=== PATIENT | female | born 1960 | race Caucasian/White ===

== ENCOUNTER 2022-05-19 13:52 | Outpatient (CLI) | payer OTHER, SELFPAY ==
--- NOTE | 2022-05-19 14:00 | CRLHL7_ITS ---
For Patients: As a result of the Century Cures Act, medical imaging exams and procedure reports are released immediately into your electronic medical record. You may view this report before your referring provider. If you have questions, please contact your health care provider. INDICATION: PNEUMONIA COMPARISON: Chest x-ray 05/17/2022 TECHNIQUE: CT volumetric acquisition was performed of the thorax during intravenous infusion of 95 cc Isovue 370 nonionic intravenous contrast. Please note that all CT scans at this facility use dose modulation, iterative reconstruction, and/or weight-based dosing when appropriate to reduce radiation dose to as low as reasonably achievable. FINDINGS: The CT images are of acceptable quality and demonstrate normal uniform vascular enhancement within the pulmonary arteries. There are no suspicious filling defects which would indicate pulmonary thromboemboli. There is no evidence of pleural or pericardial fluid. The heart and thoracic aorta appear normal. There is no evidence of lymphadenopathy within the central mediastinum or within either axilla. On lung window settings, there is no evidence of pneumothorax. The pulmonary parenchyma has uniform density and there is no evidence of hemorrhage or pneumonia. IMPRESSION: No evidence of pulmonary thromboembolism. Please note that all CT scans at this facility use dose modulation, iterative reconstruction, and/or weight-based dosing when appropriate to reduce radiation dose to as low as reasonably achievable. Dictated by Sam Weir MD @ 05/20/2022 10:14:57 AM (Electronically Signed)
== END 2022-05-19 13:53 | disposition home or self-care (01) ==
LOC: CT 13:54
PROVIDERS: PCP Internal Medicine; Visit Provider Internal Medicine
DX: J18.9 Pneumonia, unspecified organism (principal)
CPT/HCPCS: 71260; Q9967

== ENCOUNTER 2022-06-09 08:18 | Outpatient (CLI) | payer OTHER, SELFPAY | END 2022-06-09 08:19 | disposition home or self-care (01) | LOC: FRMREF 08:18 | PROVIDERS: PCP Internal Medicine; Visit Provider Internal Medicine | DX: J45.901 Unspecified asthma with (acute) exacerbation (principal) | CPT/HCPCS: 87070 ==

== ENCOUNTER 2022-07-29 11:44 | Outpatient (CLI) | payer OTHER, SELFPAY | END 2022-07-29 11:45 | disposition home or self-care (01) | LOC: NFLDREF 07-30 10:09 | PROVIDERS: PCP Internal Medicine; Referring Provider Internal Medicine; Visit Provider Internal Medicine | DX: H53.8 Other visual disturbances (principal) | CPT/HCPCS: 80053 ==

== ENCOUNTER 2023-03-31 08:42 | Outpatient (CLI) | payer OTHER, SELFPAY ==
--- NOTE | 2023-03-31 09:00 | CRLHL7_ITS ---
For Patients: As a result of the Century Cures Act, medical imaging exams and procedure reports are released immediately into your electronic medical record. You may view this report before your referring provider. If you have questions, please contact your health care provider. 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 Current height (in): 62.0. Weight (lb): 155.0. Menopause age: 54. Ethnicity: White. 1. Have you had a previous hip or vertebral fracture? No. 2. Have you had any fractures during your adult life which did not result from significant trauma (e.g., auto accident)? No. 3. Did either of your parents have a hip fracture? No. 4. Do you smoke? No. 5. Have you ever taken Glucocorticoids? Yes. 6. Do you have rheumatoid arthritis? No. 7. Do you have secondary osteoporosis? No. 8. Do you drink 3 or more alcoholic drinks per day? No. 9. Are you being treated for osteoporosis? No. 10. Have you ever taken any of the following medications: Actonel, Evista, Fosamax, Miacalcin, Reclast, Boniva, Forteo, HRT (i.e. estrogen/hormone therapy), Protelos, Prolia, Vitamin D, Calcium, other ??? please specify. ANSWER: Yes, Fosamax, HRT. 11. Do you have any of the following medical conditions: Anorexia or bulimia, asthma or emphysema, end stage renal disease, hyperparathyroidism, any seizure disorders, cancer, inflammatory bowel diseases, hysterectomy, other ??? please specify. ANSWER: Yes, Asthma or emphysema. 12. What was your maximum height (inches)? 62. 13. Do you perform weight bearing exercise regularly? Yes. 14. Do you regularly consume dairy products? Yes. 15. Do you drink caffeinated beverages? Yes. 16. At what age did your period start? 13. 17. Are you premenopausal? No. 18. How many full term pregnancies have you had? 0. 19. Have you ever missed your period for more than 6 months in a row (not including or menopause)? No. TECHNIQUE: Bone mineral density study was performed using the [employer]. FINDINGS: The results of the study expressed as bone mineral density (BMD) are as follows: Lumbar spine L1 to L3: BMD: 0.883 g/cm2. T-score: -1.2. Z-score: 0.2. Neck Left: BMD: 0.632 g/cm2. T-score: -2.0. Z-score: -0.7. Right: BMD: 0.608 g/cm2. T-score: -2.2. Z-score: -0.9. Total Left: BMD: 0.793 g/cm2. T-score: -1.2. Z-score: -0.3. Right: BMD: 0.793 g/cm2. T-score: -1.2. Z-score: -0.3. IMPRESSION: Osteopenia. *Comparison exams done prior to 10/2019 were performed on different unit, [employer]. FRAX 10-year Fracture Risk Major Osteoporotic Fracture: 16 percent Hip Fracture: 2.6 percent Reported Risk Factors: [place] () Neck BMD=0.608, BMI=28.3, glucocorticoids. Sam Weir M.D. Diagnostic Radiologist [email or web address] DSM/pjt PT/Dictated by: Sam Weir MD @ 04/04/2023 6:40:00 AM (Electronically Signed)
== END 2023-03-31 08:43 | disposition home or self-care (01) ==
PROVIDERS: PCP Internal Medicine; Visit Provider Physician Assistant
DX: M85.89 Other specified disorders of bone density and structure, multiple sites (principal); Z79.52 Long term (current) use of systemic steroids
CPT/HCPCS: 77080

== ENCOUNTER 2023-07-27 12:44 | Outpatient (CLI) | payer OTHER, SELFPAY ==
--- NOTE | 2023-07-27 13:00 | US_ITS ---
Patient: NAEEM PASTOR Facility:?[facility] Patient ID:?[id number] Site Patient ID:?[id number]. Site :?[id number] Study:?US-OB Pelvis TA/TV Pelvic US-07/27/2023 2:06:16 PM Ordering Physician:Sylvia July Final Report: INDICATION: Post menopausal vaginal bleeding. COMPARISON: None. TECHNIQUE: Transabdominal and transvaginal pelvic ultrasound. FINDINGS: The uterus measures 1.1 x 3.3 x 4.3 cm. The endometrial lining measures 0.33 cm in thickness. Fluid identified within the endometrial cavity. A 0.5 x 0.3 x 0.4 cm hyperechoic intracavitary lesion with questionable vascularity; rule out endometrial polyp. Right ovary measures 2.8 x 1.6 x 1.5 cm and the left ovary measures 1.1 x 1.2 x 1.4 cm. Normal blood flow to the ovaries bilaterally. No free fluid identified in the pelvic cul-de-sac. IMPRESSION: 1. A 0.5 cm hyperechoic intracavitary lesion within the endometrial cavity; rule out polyp; METALLURGICAL ENGINEERING TEACHER consultation suggested and hysterosonography might be helpful. 2. Normal pelvic ultrasound otherwise. Dictated by Slim Birmingham MD @ 07/28/2023 8:24:01 AM Signed by:Marie Birmingham MD @07/28/2023 8:24:01 AM (Electronic Signature)
== END 2023-07-27 12:45 | disposition home or self-care (01) ==
LOC: US 12:45
PROVIDERS: PCP Internal Medicine; Visit Provider Physician Assistant
DX: N95.0 Postmenopausal bleeding (principal)
CPT/HCPCS: 76830; 76856

== ENCOUNTER 2023-09-06 06:40 | Day surgery (SDC) | payer OTHER, SELFPAY ==
--- OUTSIDE RECORDS SUMMARY | 2023-09-06 06:43 | XMS_ITS | Referral Summary ---
Author Name Unknown Organization [facility] Address [address] [place] [address] Care Team Providers Care Caltrans Equipment Operator Name Role Phone Elsewhere, Pcp Primary Care Provider Unavailabl e Source Comments Patient records contain information from all sites at [facility]. For routine questions regarding patient records, call [phone] during business hours, M-F 8:00 AM - 5:00 PM Central Time. Record requests for emergency care only can be directed to [phone] at any time.[facility] Encounters Date Type Department Care Team Description 06/21/2023 Clinical Communication Division of Pulmonary Medicine in [place], [place] [address] [place] [phone] Martha Moncada M.D. Medication PA 06/21/2023 Orders Only Division of Pulmonary Medicine in [place], [place] [address] [place] [phone] Martha Moncada M.D. 06/17/2023 2:30 PM EXPORT COORDINATOR Office Visit Division of Pulmonary Medicine in [place], [place] [address] [place] [phone] Martha Moncada M.D. Asthma Chronic (HCC) (Primary Dx) 06/16/2023 2:00 PM EXPORT COORDINATOR Clinical Communication Virtual Review in [place], [place] [address] [place] [address] from Last 3 Months Allergies Active Allergy Reactions Criticality Noted Date Comments Levofloxacin Swelling,Other (see comments) 06/08/2022 angioedema Levofloxacin In D5w Swelling High 11/05/2011 Tongue swells up Lisinopril Swelling 06/28/2014 Swelling of throat Penicillins Hives (Reselect Reaction) High 11/05/2011 Shellfish Containing Products Anaphylaxis High 09/19/2013 Medications Medication Sig Dispensed Refills Start Date End Date Status albuterol (Ventolin HFA) 90 mcg/actuation inhaler Take 2 puffs by mouth every 6 (six) hours as needed. 09/14/2019 Active cholecalciferol (VITAMIN D3) 50 mcg (2,000 Unit) tablet Take 2,000 Units by mouth daily. 12/30/2015 Active EPINEPHrine (EpiPen 2-Donovan) 0.3 mg/0.3 mL injection syringe as needed. 09/11/2014 Active esomeprazole (NexIUM) [address] capsule Take 40 mg by mouth every morning before breakfast. 01/23/2019 Active fluticasone propionate (FLONASE) 50 mcg/actuation nasal spray Administer 1 spray into each nostril 2 (two) times a day. Active ipratropium-albut Sheela (DUONEB) 0.5-2.5 mg/3 mL nebulizer solution Inhale 3 mL by nebulization 4 (four) times a day as needed. 05/06/2014 Active metaxalone (SKELAXIN) 800 mg tablet Take 400-800 mg by mouth 2 (two) times a day as needed for muscle spasms. 08/31/2019 Active montelukast (SINGULAIR) 10 mg tablet Take 10 mg by mouth at bedtime. 11/05/2019 Active progesterone (PROMETRIUM) 100 mg capsule Take 100 mg by mouth daily. 06/12/2019 Active butalbital-acetam inophen-caff (FIORICET) 50-300-40 mg per capsule Take 1 capsule by mouth every 6 (six) hours as needed for headaches or migraine. Active promethazine (PHENERGAN) 25 mg tablet Take 25 mg by mouth every 6 (six) hours as needed for nausea. 01/23/2019 Active calcium carbonate-vitamin D3 (Calcium 600 with Vitamin D3) 600 mg-10 mcg (400 unit) tablet,chewable Chew 1 tablet 2 (two) times a day. 25 mcg Active famotidine (PEPCID) 20 mg tablet Take 20 mg by mouth as needed. Active estradioL (VIVELLE-DOT) 0.05 mg/24 hr patch APPLY 1 PATCH TRANSDERMALLY TWICE A WEEK 08/05/2022 Active Advair Diskus 500-50 mcg/act diskus inhaler Inhale 1 puff 2 (two) times a day. 02/27/2023 Active sucralfate (CARAFATE) 1 gram tablet Take 1 g by mouth daily as needed (WHILE ON HIGH DOSE STEROIDS ONLY). 01/11/2023 Active multivitamin capsule Take 1 capsule by mouth daily. Active multivitamin-eye (PRESERVISION LUTEIN) 226 mg-90 mg-5 mg-0.8 mg capsule Take 1 capsule by mouth daily. Active dupilumab (Dupixent Pen) 200 mg/1.14 mL pen injector Inject 200 mg under the skin every 14 (fourteen) days. 6.84 mL 3 06/01/2023 Active fluticasone propion-salmetero L (Wixela Inhub) 500-50 mcg/dose diskus inhaler Inhale 1 puff 2 (two) times a day. Rinse mouth with water after use to reduce aftertaste and incidence of candidiasis. Do not swallow. 180 each 3 06/17/2023 Active Spiriva with HandiHaler 18 mcg inhalation capsule Inhale 1 capsule (18 mcg total) daily. Using the HandiHaler device. 90 capsule 11 06/17/2023 Active Social History Tobacco Use Types Packs/Day Years Used Date Smoking Tobacco: Never Passive Smoke Exposure: Past Smokeless Tobacco: Never Tobacco Cessation:Counseling Given: Not Answered Alcohol Use Standard Drinks/Week Comments Yes 0 (1 standard drink = 0.6 oz pure alcohol) I have a drink approximately every 3-4 months Humiliation, Afraid, Rape, and Kick questionnair e Answer Date Recorded Within the last year, have y ou been afraid of your partner or ex-partner? No 08/08/2022 Within the last year, have y ou been humiliated or emotionally abused in other ways by your partner or ex-partner? No Within the last year, have y ou been kicked, hit, slapped, or otherwise physically hurt by your partner or ex-partner? No 08/08/2022 Within the last year, have y ou been raped or forced to have any kind of sexual activity by your partner or ex-partner? No 08/08/2022 Social Connection and Isolat ion Panel [NHANES] Answer Date Recorded In a typical week, how many times do you talk on the phone with family, friends, or neighbors? More than three times a week 08/08/2022 How often do you get togethe r with friends or relatives? Three times a week 08/08/2022 How often do you attend chur ch or catholic services? More than 4 times per year 08/08/2022 Do you belong to any clubs o r organizations such as mandaen groups, unions, fraternal or athletic groups, or school groups? Yes 08/08/2022 How often do you attend meet ings of the clubs or organizations you belong to? More than 4 times per year 08/08/2022 Are you , , di vorced, , never , or living with a partner? 08/08/2022 AUDIT-C Answer Date Recorded Q1: How often do you have a drink containing alc ohol? Monthly or less 08/08/2022 Q2: How many drinks containi ng alcohol do you have on a typical day when you are drinking? 1 or 2 08/08/2022 Q3: How often do you have si x or more drinks on one occasion? Never 08/08/2022 Overall Financial Resource Strain (CARDIA) Answe r Date Recorded How hard is it for you to pa y for the very basics like food, housing, medical care, and heating? Not very hard 08/08/2022 [facility] - Occupational Stress Questionnaire Answer Date Recorded Do you feel stress - tense, restless, nervous, or anxious, or unable to sleep at night because your mind is troubled all the time - these days? Only a little 08/08/2022 Exercise Vital Sign Answer Date Recorde d On average, how many days pe r week do you engage in moderate to strenuous exercise (like a brisk walk)? 7 days 08/08/2022 On average, how many minutes do you engage in exercise at this level? 30 min 08/08/2022 Hunger Vital Sign Answer Date Recorded Within the past 12 months, y ou worried that your food would run out before you got the money to buy more. Never true 08/09/19 23 Within the past 12 months, t he food you bought just didn't last and you didn't have money to get more. Never true 08/08/2022 PRAPARE - Transportation Answer Date Re corded In the past 12 months, has l ack of transportation kept you from medical appointments or from getting medications? No 12/2022 In the past 12 months, has l ack of transportation kept you from meetings, work, or from getting things needed for daily living? No 08/08/2022 Housing Stability Vital Sign Answer Dc e Recorded In the last 12 months, was t here a time when you were not able to pay the mortgage or rent on time? No 08/08/2022 In the last 12 months, how many places have you lived? 1 08/08/2022 In the last 12 months, was t here a time when you did not have a steady place to sleep or slept in a senior care (including now)? No 08/08/2022 Nutrition Answer Date Recorded Nutrition: EVOO Fat Source Yes 08/08 On average, how many serving s of fruits and vegetables do you eat per day (serving size is equal to 1 cup or approximately the size of a tennis ball)? 2-3 08/08/2022 Dental Answer Date Recorded Dental: Regular Dentist Yes 08/09/19 Employment Answer Date Recorded Employment status Employed and actively working without restrictions 08/08/2022 Education Answer Date Recorded What is the highest level of school you have completed or the highest degree you have received? Master's degree (e.g., MA, MS, Jaleel, MEd, SEQUINS SPOOLER, [employer]ENRY) 08/08/2022 Sex and Gender Information Value Date Recorded Sex Assigned at Female 08/08/2022 12:01 PM CDT Gender Identity Female 08/08/2022 12:01 PM CDT Sexual Orientation Straight 08/08/2022 12 :01 PM CDT Last Filed Vital Signs Vital Sign Reading Time Taken Comments Blood Pressure 139/84 06/17/2023 2:22 PM EXPORT COORDINATOR Pulse 99 06/17/2023 2:22 PM EXPORT COORDINATOR Temperature 36.2 ??C (97.2 ??F) 06/17/2023 2:22 PM CS T Respiratory Rate - - Oxygen Saturation 98% 06/17/2023 2:22 PM EXPORT COORDINATOR Inhaled Oxygen Concentration - - Weight 71.3 kg (157 lb 3 oz) 06/17/2023 2:22 PM EXPORT COORDINATOR Height 156.5 cm (5' 1.61) 06/17/2023 2:22 PM CS T Body Mass Index 29.11 06/17/2023 2:22 PM EXPORT COORDINATOR Plan of Treatment Not on file Procedures Procedure Name Priority Date/Time Associated Diagnosis Comments PULMONARY FUNCTION TESTS Routine 06/17/2023 12:39 PM EXPORT COORDINATOR Asthma Severe Persistent (HCC) BASIC METABOLIC PANEL, S/P Routine 11/08/2022 12:57 PM CDT Asthma Moderate Persistent (HCC) OUTSIDE MG MAMMOGRAM Routine 09/08/2021 2:05 PM CDT from Last 3 Months or Most Recently Relevant to Health Maintenance Results * Pulmonary Function Tests (06/17/2023 12:39 PM EXPORT COORDINATOR) PostFVC 3.26 L 06/17/2023 3:53 PM EXPORT COORDINATOR [facility] PostFEV1 2.71 L 06/17/2023 3:53 PM EXPORT COORDINATOR [facility] FEV1/FVC POST 83.04 % 06/17/2023 3:53 PM EXPORT COORDINATOR [facility] FEF 25-75 % POST 3.03 L/s 06/17/2023 3:53 PM EXPORT COORDINATOR [facility] PEF POST 6.87 L/s 06/17/2023 3:53 PM EXPORT COORDINATOR [facility] PIF POST 5.30 L/s 06/17/2023 3:53 PM EXPORT COORDINATOR [facility] FEF 50 % FIF 50 POST 66.81 % 06/17/2023 3:53 PM EXPORT COORDINATOR [facility] FET POST 7.42 sec 06/17/2023 3:53 PM EXPORT COORDINATOR [facility] FVC 3.11 L 06/17/2023 3:53 PM EXPORT COORDINATOR [facility] FEV1 2.61 L 06/17/2023 3:53 PM [facility]PORT [facility] FEV1/FVC 83.71 % 06/17/2023 3:53 PM EXPORT COORDINATOR [facility] GNN98-20% 2.97 L/s 06/17/2023 3:53 PM EXPORT COORDINATOR [facility] PEF PRE 7.42 L/s 06/17/2023 3:53 PM EXPORT COORDINATOR [facility] PIF PRE 4.67 L/s 06/17/2023 3:53 PM EXPORT COORDINATOR [facility] FEF 50 % FIF 50 PRE 74.25 % 06/17/2023 3:53 PM EXPORT COORDINATOR [facility] FET PRE 5.94 sec 06/17/2023 3:53 PM EXPORT COORDINATOR [facility] SUBSTANCE POST Albuterol 06/17/2023 3:53 PM EXPORT COORDINATOR [facility] 06/17/2023 12:3 9 PM EXPORT COORDINATOR Impressions [facility] - 06/17/2023 3:53 PM EXPORT COORDINATOR Normal spirometry with no immediate response to bronchodilator. Compared to 11/08/2022, there is no change. Narrative Procedure Note Dougie House M.D. - 06/17/2023 IMPRESSION: Normal spirometry with no immediate response to bronchodilator. Comparedto 11/08/2022, there is no change. Martha Bryant M.D. PFT ORDERA BLES [facility] NA * (ABNORMAL) Basic Metabolic Panel (11/08/2022 12:57 PM CDT) Potassium, S 4.6 3.6 - 5.2 mmol/L 11/08/2022 2:02 PM CDT DTL Sodium, S 136 135 - 145 mmol/L 11/08/2022 2:02 PM CDT DTL Chloride, S 100 98 - 107 mmol/L 11/08/2022 2:02 PM CDT DTL Bicarbonate, S 25 22 - 29 mmol/L 11/08/2022 2:02 PM CDT DTL Anion Gap 11 7 - 15 11/08/2022 2:02 PM CDT DTL BUN (Blood Urea Nitrogen), S 16 6 - 21 mg/dL 11/08/2022 2:02 PM CDT DTL Creatinine 0.91 0.59 - 1.04 mg/dL 11/08/2022 2:02 PM CDT DTL Estimated GFR (eGFR) 72 >=60 mL/min/BSA 11/08/2022 2:02 PM CDT DTL Comment: Estimated GFR calculated using the 2020 CKD_EPI creatinine equation. Calcium, Total, S 9.7 8.8 - 10.2 mg/dL 11/08/2022 2:02 PM CDT DTL Glucose, S 163(H) 70 - 140 mg/dL 11/08/2022 2:02 PM CDT DTL Blood (Blood, Venous) 11/08/2022 12:57 PM CDT 11/08/2022 1:33 PM CDT Martha Bryant M.D. LAB BLOOD ADD-ON Performing Organization Address City/[facility]/ZIP Co de Phone Number [facility] [address] [place] [address], [facility] [place] [address] [place] [address] * MAMMO SCREEN, BILAT, W/CAD-Outside Mammogram (09/08/2021 2:05 PM CDT) Narrative [facility] - 08/03/2022 8:44 AM CDT This order has been created and auto-finalized to support the import of outside images. If available, original interpretation can be found on the Media Tab in Chart Review, in Document Viewer, or as an image in QREADS. If a re-interpretation or overread is required please follow defined workflow. ?? Provider Not In System IMG BI PROCEDURES Performing Organization Address City/[facility]/ZIP Co de Phone Number [facility] NA from Last 3 Months or Most Recently Relevant to Health Maintenance Care Teams Cal[employer] Equipment Operator Relationship Specialty Start Date End Date Elsewhere, Pcp PCP - General Internal Medicine 02/28/23
--- OUTSIDE RECORDS SUMMARY | 2023-09-06 06:43 | XMS_ITS | Encounter Summary ---
Author Name Unknown Organization [facility] Address [address] [place] [address] Care Team Providers Care Last Trimmer Name Role Phone Elsewhere, Pcp Primary Care Provider Unavailabl e Reason for Visit * Reason Onset Date Comments Pre-visit Testing Orders 05/11/2023 Encounter Details Date Type Department Care Team (Latest Contact Info) Description 05/11/2023 Clinical Communication Division of Pulmonary Medicine in [place], [place] [address] [place] [phone] Martha Moncada M.D. [address] [place] [phone] Pre-visit Testing Orders Social History Tobacco Use Types Packs/Day Years Used Date Smoking Tobacco: Never Passive Smoke Exposure: Past Smokeless Tobacco: Never Alcohol Use Standard Drinks/Week Comments Yes 0 [...] often do you attend chur ch or caodaism services? More than 4 times per year 08/08/2022 Do you belong to any clubs o r organizations such as scientology groups, unions, fraternal or athletic groups, or [...] care, and heating? Not very hard 08/08/2022 [facility] - Occupational [...] place to sleep or slept in a half-way (including now)? No 08/08/2022 Nutrition Answer Date [...] Master's degree (e.g., MA, MS, Jaleel, MEd, PRINTING MACHINE MECHANIC, [employer]) 08/08/2022 Sex and Gender Information Value Date Recorded Sex Assigned at Female 08/08/2022 12:01 PM CDT Gender Identity Female 08/08/2022 12:01 PM CDT Sexual Orientation Straight 08/08/2022 12 :01 PM CDT documented as of this encounter Plan of Treatment Not on file documented as of this encounter Visit Diagnoses Not on filedocumented in this encounter Care Teams Last Trimmer Relationship Specialty Start Date End Date Elsewhere, Pcp PCP - General Internal Medicine 02/28/23 documented as of this encounter
--- OUTSIDE RECORDS SUMMARY | 2023-09-06 06:43 | XMS_ITS | Encounter Summary ---
Author Name Unknown Organization [facility] Address [address] [place] [address] Care Team Providers Care Electrical Electronics Engineers Name Role Phone Elsewhere, Pcp Primary Care Provider Unavailabl e Reason for Visit * Reason Onset Date Comments Medication PA 06/21/2023 Encounter Details Date Type Department Care Team (Late st Contact Info) Description 06/21/2023 Clinical Communication Division of Pulmonary Medicine in [place], [place] [address] [place] [phone] Martha Moncada M.D. [address] [place] [phone] Medication PA Social History Tobacco Use Types Packs/Day Years [...] often do you attend chur ch or mormon services? More than 4 times per year 08/08/2022 Do you belong to any clubs o r organizations such as methodist groups, unions, fraternal or athletic groups, or [...] care, and heating? Not very hard 08/08/2022 [facility] - Occupational [...] place to sleep or slept in a fpc (including now)? No 08/08/2022 Nutrition Answer Date [...] Master's degree (e.g., MA, MS, Jaleel, MEd, ESCALATION ENGINEER, HENRY) 08/08/2022 Sex and Gender Information Value Date Recorded Sex Assigned at Female 08/08/2022 12:01 PM CDT Gender Identity Female 08/08/2022 12:01 PM CDT Sexual Orientation Straight 08/08/2022 12 :01 PM CDT documented as of this encounter Miscellaneous Notes * Telephone Encounter - Eva Martinez - 06/21/2023 2:02 PM CST Pharmacy has asked us to complete the PA on the Wixela. Patient is almost out of medication. [employer] as a high priority. LOAD ESCORT documented in this encounter Plan of Treatment Not on file documented as of this encounter Visit Diagnoses Not on filedocumented in this encounter Care Teams Electrical Electronics Engineers Relationship Specialty Start Date End Date Elsewhere, Pcp PCP - General Internal Medicine 02/28/23 documented as of this encounter
--- OUTSIDE RECORDS SUMMARY | 2023-09-06 06:43 | XMS_ITS | Encounter Summary ---
Author Name Unknown Organization [facility] Address [address] [place] [address] Care Team Providers Care Drawbridge Operator Name Role Phone Elsewhere, Pcp Primary Care Provider Unavailabl e Reason for Visit * Reason Onset Date Comments Rx Prior Authorization 06/02/2023 Dupixent Encounter Details Date Type Department Care Team (Latest Contact Info) Description 06/02/2023 Clinical Communication Division of Pulmonary Medicine in [place], [place] [address] [place] [address] Martha Moncada M.D. [address] [place] [address] Rx Prior Authorization (Dupixent ) Social History Tobacco Use Types Packs/Day Years [...] often do you attend chur ch or restorationism services? More than 4 times per year 08/08/2022 Do you belong to any clubs o r organizations such as nondenominational groups, unions, fraternal or athletic groups, or [...] care, and heating? Not very hard 08/08/2022 [facility] of Occupat ional Health - Occupational Stress [...] place to sleep or slept in a nursing home (including now)? No 08/08/2022 Nutrition Answer Date [...] Master's degree (e.g., MA, MS, Jaleel, MEd, BLOOD BANK TECHNICIAN, HENRY) 08/08/2022 Sex and Gender Information Value Date Recorded Sex Assigned at Female 08/08/2022 12:01 PM CDT Gender Identity Female 08/08/2022 12:01 PM CDT Sexual Orientation Straight 08/08/2022 12 :01 PM CDT documented as of this encounter Plan of Treatment Not on file documented as of this encounter Visit Diagnoses Not on filedocumented in this encounter Care Teams Drawbridge Operator Relationship Specialty Start Date End Date Elsewhere, Pcp PCP - General Internal Medicine 02/28/23 documented as of this encounter
--- OUTSIDE RECORDS SUMMARY | 2023-09-06 06:43 | XMS_ITS | Encounter Summary ---
Author Name Unknown Organization [facility] Address [address] [place] [address] Care Team Providers Care Pediatric Intensive Physician Name Role Phone Elsewhere, Pcp Primary Care Provider Unavailabl e Encounter Details Date Type Department Care Team (Late st Contact Info) Description 06/21/2023 Orders Only Division of Pulmonary Medicine in [place], [place] [address] [place] [address] Martha Moncada M.D. [address] [place] [address] Social History Tobacco Use Types Packs/Day Years [...] 08/08/2022 How often do you attend chur or mormon services? More than 4 times per year 08/08/2022 Do you belong to any clubs o r organizations such as religion groups, unions, fraternal or athletic groups, or [...] care, and heating? Not very hard 08/08/2022 [facility] of Occupat ional Health - Occupational Stress [...] place to sleep or slept in a alf (including now)? No 08/08/2022 Nutrition Answer Date [...] Master's degree (e.g., MA, MS, Jaleel, MEd, SUPERVISOR BRIDGES AND BUILDINGS, HENRY) 08/08/2022 Sex and Gender Information Value Date Recorded Sex Assigned at Female 08/08/2022 12:01 PM CDT Gender Identity Female 08/08/2022 12:01 PM CDT Sexual Orientation Straight 08/08/2022 12 :01 PM CDT documented as of this encounter Plan of Treatment Not on file documented as of this encounter Visit Diagnoses Not on filedocumented in this encounter Care Teams Pediatric Intensive Physician Relationship Specialty Start Date End Date Elsewhere, Pcp PCP - General Internal Medicine 02/28/23 documented as of this encounter
--- OUTSIDE RECORDS SUMMARY | 2023-09-06 06:43 | XMS_ITS ---
Author Name Unknown Organization [facility] Address [address] [place] [address] Care Team Providers Care Trolley Car Overhauler Name Role Phone Unavailable Unavailable Unavailable Surgery Details Not on file Complications Check Surgery Details section. Procedure Estimated Blood Loss Check Surgery Details section. Procedure Findings Check Surgery Details section. Procedure Specimens Taken Check Surgery Details section.
--- OUTSIDE RECORDS SUMMARY | 2023-09-06 06:43 | XMS_ITS | Clinical Summary ---
Author Name Unknown Organization [facility] Address [address] [place] [address] Care Team Providers Care Real Estate Paralegal Name Role Phone Elsewhere, Pcp Primary Care Provider Unavailabl e Source Comments Patient records contain information from all sites at [facility]. For routine questions regarding patient records, call [phone] during business hours, M-F 8:00 AM - 5:00 PM Central Time. Record requests for emergency care only can be directed to [phone] at any time.[facility] Allergies Active Allergy Reactions Criticality Noted Date [...] HandiHaler device. 90 capsule 11 06/17/2023 Active Encounters Date Type Department Care Team Description 06/21/2023 Clinical Communication Division of Pulmonary Medicine in [place], [place] [address] [place] [address] Martha Moncada M.D. Medication PA 06/21/2023 Orders Only Division of Pulmonary Medicine in [place], [place] [address] [place] [phone] Martha Moncada M.D. 06/17/2023 2:30 PM LOCKSTITCH SHOULDER JOINER Office Visit Division of Pulmonary Medicine in [place], [place] [address] [place] [phone] Martha Moncada M.D. Asthma Chronic (HCC) (Primary Dx) 06/16/2023 2:00 PM LOCKSTITCH SHOULDER JOINER Clinical Communication Virtual Review in [place], [place] [address] [place] [address] from Last 3 Months Family History Medical History Relation Name Comments Arthritis Mother Allen Crum Migraines Mother Allen Crum Rheum arthritis Mother Allen Crum Ulcerative colitis Mother Allen Crum Hypertension Mother's Sister Vianney Lane Rheum arthritis Mother's Sister Vianney Lane Skin cancer Mother's Sister Vianney Lane Relation Name Status Comments Mother Allen Crum Mother's Sister Vianney Lane Social History Tobacco Use Types Packs/Day Years [...] How often do you attend chur or anabaptist services? More than 4 times per year 08/08/2022 Do you belong to any clubs o r organizations such as sikhism groups, unions, fraternal or athletic groups, or [...] care, and heating? Not very hard 08/08/2022 [facility] of Occupat ional Health - Occupational Stress [...] money to buy more. Never true 08/09/19 Within the past 12 months, t he [...] place to sleep or slept in a custodial (including now)? No 08/08/2022 Nutrition Answer Date [...] Master's degree (e.g., MA, MS, Jaleel, MEd, CRANE HELPER, HENRY) 08/08/2022 Sex and Gender Information Value Date Recorded Sex Assigned at Female 08/08/2022 12:01 PM CDT Gender Identity Female 08/08/2022 12:01 PM CDT Sexual Orientation Straight 08/08/2022 12 :01 PM CDT Last Filed Vital Signs Vital Sign Reading Time Taken Comments Blood Pressure 139/84 06/17/2023 2:22 PM LOCKSTITCH SHOULDER JOINER Pulse 99 06/17/2023 2:22 PM LOCKSTITCH SHOULDER JOINER Temperature 36.2 ??C (97.2 ??F) 06/17/2023 2:22 PM CS T Respiratory Rate - - Oxygen Saturation 98% 06/17/2023 2:22 PM LOCKSTITCH SHOULDER JOINER Inhaled Oxygen Concentration - - Weight 71.3 kg (157 lb 3 oz) 06/17/2023 2:22 PM LOCKSTITCH SHOULDER JOINER Height 156.5 cm (5' 1.61) 06/17/2023 2:22 PM CS T Body Mass Index 29.11 06/17/2023 2:22 PM LOCKSTITCH SHOULDER JOINER Plan of Treatment Health Maintenance Due Date Last Done Comments CT Colonography 1962 Cervical Cancer Screening 1962 Cologuard 1962 Colonoscopy 1962 Colorectal Cancer Screening 1962 FIT 1962 HIV Screening 1962 Hepatitis C Screening 1962 Lipid (Cholesterol) Screening 1962 Pneumococcal vaccine (0-64 years) (2 of 2 - PCV) 10/10/2011 10/09/2010 Mammogram 09/08/2022 09/08/2021, 06/30, 10/23/2018, Additional history exists COVID-19 Vaccine (2022- season) 2023 01/25/2023, 01/27/2022, 08/10/2021, Additional history exists Depression Screening (Annual PHQ-2) 05/02/2023 Fasting Glucose for Diabetes Screening 11/08/2025 11/08/2022, 08/09/2022 DTaP,Tdap,and Td Vaccines (3 - Td or Tdap) 09/02/2028 09/02/2018, 11/28/2007, 06/30/2002 Zoster Vaccines Completed 04/16/2019, 08/26/2017 Influenza Vaccine Completed 01/25/2023, , 01/27/2022, Additional history exists Hepatitis B Vaccines Aged Out No long er eligible based on patient's age to complete this topic Procedures Procedure Name Priority Date/Time Associated Diagnosis Comments PULMONARY FUNCTION TESTS Routine 06/17/2023 12:39 PM LOCKSTITCH SHOULDER JOINER Asthma Severe Persistent (HCC) BASIC METABOLIC PANEL, S/P Routine 11/08/2022 12:57 PM CDT Asthma Moderate Persistent (HCC) OUTSIDE MG MAMMOGRAM Routine 09/08/2021 2:05 PM CDT from Last 3 Months or Most Recently Relevant to Health Maintenance Results * Pulmonary Function Tests (06/17/2023 12:39 PM LOCKSTITCH SHOULDER JOINER) PostFVC 3.26 L 06/17/2023 3:53 PM LOCKSTITCH SHOULDER JOINER [facility] [address] PostFEV1 2.71 L 06/17/2023 3:53 PM LOCKSTITCH SHOULDER JOINER [facility] FEV1/FVC POST 83.04 % 06/17/2023 3:53 PM LOCKSTITCH SHOULDER JOINER [facility] [address] FEF 25-75 % POST 3.03 L/s 06/17/2023 3:53 PM LOCKSTITCH SHOULDER JOINER [facility] [address] PEF POST 6.87 L/s 06/17/2023 3:53 PM LOCKSTITCH SHOULDER JOINER [facility] PIF POST 5.30 L/s 06/17/2023 3:53 PM LOCKSTITCH SHOULDER JOINER [facility] SU[facility] FEF 50 % FIF 50 POST 66.81 % 06/17/2023 3:53 PM LOCKSTITCH SHOULDER JOINER [facility] FET POST 7.42 sec 06/17/2023 3:53 PM LOCKSTITCH SHOULDER JOINER [facility] SU[facility] FVC 3.11 L 06/17/2023 3:53 PM LOCKSTITCH SHOULDER JOINER [facility] SU[facility] FEV1 2.61 L 06/17/2023 3:53 PM LOCKSTITCH SHOULDER JOINER [facility] SU[facility] FEV1/FVC 83.71 % 06/17/2023 3:53 PM LOCKSTITCH SHOULDER JOINER [facility] SU[facility] POO96-34% 2.97 L/s 06/17/2023 3:53 PM LOCKSTITCH SHOULDER JOINER [facility] SU[facility] PEF PRE 7.42 L/s 06/17/2023 3:53 PM LOCKSTITCH SHOULDER JOINER [facility] PIF PRE 4.67 L/s 06/17/2023 3:53 PM LOCKSTITCH SHOULDER JOINER [facility] SU[facility] FEF 50 % FIF 50 PRE 74.25 % 06/17/2023 3:53 PM LOCKSTITCH SHOULDER JOINER [facility] FET PRE 5.94 sec 06/17/2023 3:53 PM LOCKSTITCH SHOULDER JOINER [facility] SUBSTANCE POST Albuterol 06/17/2023 3:53 PM [facility] [place] [facility] SUITE 06/17/2023 12:3 9 PM LOCKSTITCH SHOULDER JOINER Impressions [facility] - 06/17/2023 3:53 PM LOCKSTITCH SHOULDER JOINER Normal spirometry with no immediate response to bronchodilator. Compared to 11/08/2022, there is no change. Narrative Procedure Note Dougie House M.D. - 06/17/2023 IMPRESSION: Normal spirometry with no immediate response to bronchodilator. Comparedto 11/08/2022, there is no change. Martha Bryant M.D. PFT ORDERA BLES [facility] NA * (ABNORMAL) Basic Metabolic Panel [...] CDT Martha Bryant M.D. LAB BLOOD ADD-ON [facility] [place] [address] [place] [address], [place] DTL [facility] [address] [place] [address] * MAMMO SCREEN, BILAT, W/CAD-Outside Mammogram (09/08/2021 [...] System IMG BI PROCEDURES Performing Organization Address City/[facility] Co de Phone Number [facility] NA from Last 3 Months or Most Recently Relevant to Health Maintenance Care Teams Real Estate Paralegal Relationship Specialty Start Date End Date Elsewhere, Pcp PCP - General Internal Medicine 02/28/23
--- OUTSIDE RECORDS SUMMARY | 2023-09-06 06:43 | XMS_ITS | Encounter Summary ---
Author Name Unknown Organization [facility] Address [address] [place] [address] Care Team Providers Care Brass Cleaner Name Role Phone Elsewhere, Pcp Primary Care Provider Unavailabl e Encounter Details Date Type Department Care Team (Late st Contact Info) Description 05/30/2023 Orders Only Division of Pulmonary Medicine in [place], [place] [address] [place] [address] Martha Moncada M.D. [address] [place] [address] Social History Tobacco Use Types Packs/Day Years [...] How often do you attend chur or moravian services? More than 4 times per year 08/08/2022 Do you belong to any clubs o r organizations such as jew groups, unions, fraternal or athletic groups, or [...] care, and heating? Not very hard 08/08/2022 [facility] [place] of Occupat ional Health - Occupational Stress [...] place to sleep or slept in a detention (including now)? No 08/08/2022 Nutrition Answer Date [...] Master's degree (e.g., MA, MS, Jaleel, MEd, FOIL SPOOLER, HENRY) 08/08/2022 Sex and Gender Information Value Date Recorded Sex Assigned at Female 08/08/2022 12:01 PM CDT Gender Identity Female 08/08/2022 12:01 PM CDT Sexual Orientation Straight 08/08/2022 12 :01 PM CDT documented as of this encounter Plan of Treatment Not on file documented as of this encounter Visit Diagnoses Not on filedocumented in this encounter Care Teams Brass Cleaner Relationship Specialty Start Date End Date Elsewhere, Pcp PCP - General Internal Medicine 02/28/23 documented as of this encounter
--- OUTSIDE RECORDS SUMMARY | 2023-09-06 06:43 | XMS_ITS | Encounter Summary ---
Author Name Unknown Organization [facility] Address [address] [place] [address] Care Team Providers Care Filler Shredding Machine Loader Name Role Phone Elsewhere, Pcp Primary Care Provider Unavailabl e Encounter Details Date Type Department Care Team (Latest Contact Info) Description 06/16/2023 2:00 PM BIOFUELS MANAGER Clinical Communication Virtual Review in [place], [place] [address] [place] [address] Social History Tobacco Use Types Packs/Day Years [...] often do you attend chur ch or baptism services? More than 4 times per year 08/08/2022 Do you belong to any clubs o r organizations such as latter day groups, unions, fraternal or athletic groups, or [...] care, and heating? Not very hard 08/08/2022 [facility] of Occupat ional Health - Occupational Stress [...] place to sleep or slept in a care home (including now)? No 08/08/2022 Nutrition Answer [...] Master's degree (e.g., MA, MS, Jaleel, MEd, RADIO MECHANIC, HENRY) 08/08/2022 Sex and Gender Information Value Date Recorded Sex Assigned at Female 08/08/2022 12:01 PM CDT Gender Identity Female 08/08/2022 12:01 PM CDT Sexual Orientation Straight 08/08/2022 12 :01 PM CDT documented as of this encounter Plan of Treatment Not on file documented as of this encounter Visit Diagnoses Not on filedocumented in this encounter Care Teams Filler Shredding Machine Loader Relationship Specialty Start Date End Date Elsewhere, Pcp PCP - General Internal Medicine 02/28/23 documented as of this encounter
--- OUTSIDE RECORDS SUMMARY | 2023-09-06 06:43 | XMS_ITS | Encounter Summary ---
Author Name Unknown Organization [facility] Address [address] [place] [address] Care Team Providers Care Feller Buncher Operator Name Role Phone Elsewhere, Pcp Primary Care Provider Unavailabl e Reason for Referral * Outpatient (Routine) - Authorized Specialty Diagnoses / Procedures Referred By Ciro robles Referred To Contact Pulmonary Medicine Martha Moncada M.D. [address] [place] [address] [facility] Referral ID Status Reason Start Date Expiration Date V isits Requested Visits Authorized [id number] Authorized 06/25/2023 12/24/2024 1 1 YBOAT PILOT * Outpatient (Routine) - Authorized Specialty Diagnoses / Procedures Referred By Ciro t Referred To Contact Diagnoses Asthma Chronic (HCC) Procedures DX Chest AP or PA and Lateral 2 Views Martha Moncada M.D. [address] [place] [address] [facility] Referral ID Status Reason Start Date Expiration Date V isits Requested Visits Authorized [id number] Authorized 06/25/2023 06/24/2024 1 1 YBOAT PILOT * Medication Prior Authorization - Closed Specialty Diagnoses / Procedures Referred By Ciro robles Referred To Contact Martha Moncada M.D. [address] [place] [address] Referral ID Status Reason Start Date Expiration Date Visits Re quested Visits Authorized [id number] Closed 1 1 YBOAT PILOT Reason for Visit * Outpatient (Routine) - Closed Specialty Diagnoses / Procedures Referred By Ciro robles Referred To Contact Pulmonary Medicine Martha Moncada M.D. [address] [place] [address] [facility] Referral ID Status Reason Start Date Expiration Date Visits Re quested Visits Authorized [id number] Closed 12/01/2022 11/30/2025 1 1 Encounter Details Date Type Department Care Team (Late st Contact Info) Description 06/17/2023 2:30 PM FERRYBOAT PILOT Office Visit Division of Pulmonary Medicine in [place], [place] [address] [place] [phone] Martha Moncada M.D. [address] [place] [address] Asthma Chronic (HCC) (Primary Dx) Social History Tobacco Use Types Packs/Day Years [...] any clubs o r organizations such as confucianism groups, unions, fraternal or athletic groups, or [...] care, and heating? Not very hard 08/08/2022 [facility] of Occupat ional Health - [...] place to sleep or slept in a intermediate (including now)? No 08/08/2022 Nutrition Answer Date [...] Master's degree (e.g., MA, MS, Jaleel, MEd, BUSINESS CHANGE MANAGER, HENRY) 08/08/2022 Sex and Gender Information Value Date Recorded Sex Assigned at Female 08/08/2022 12:01 PM CDT Gender Identity Female 08/08/2022 12:01 PM CDT Sexual Orientation Straight 08/08/2022 12 :01 PM CDT documented as of this encounter Last Filed Vital Signs Vital Sign Reading Time Taken Comments Blood Pressure 139/84 06/17/2023 2:22 PM FERRYBOAT PILOT Pulse 99 06/17/2023 2:22 PM FERRYBOAT PILOT Temperature 36.2 ??C (97.2 ??F) 06/17/2023 2:22 PM CS T Respiratory Rate - - Oxygen Saturation 98% 06/17/2023 2:22 PM FERRYBOAT PILOT Inhaled Oxygen Concentration - - Weight 71.3 kg (157 lb 3 oz) 06/17/2023 2:22 PM FERRYBOAT PILOT Height 156.5 cm (5' 1.61) 06/17/2023 2:22 PM CS T Body Mass Index 29.11 06/17/2023 2:22 PM FERRYBOAT PILOT documented in this encounter Progress Notes * Martha Moncada M.D. - 06/17/2023 2:30 PM CST SUBJECTIVE CHIEF COMPLAINT / REASON FOR VISIT Darcy Pino is a 62 y.o. female who presents for evaluation of asthma. HISTORY OF PRESENT ILLNESS Mrs. Pino is a 62-year-old woman with a past medical history of asthma, immunoglobulin A deficiency, alpha-1 antitrypsin deficiency MZ, gastroesophageal reflux, migraine headache, and recurrent lung infection, coming in for followup. I last evaluated her in October 2022 for poor asthma control. We started treatment with Dupixent. She reports that she has significantly improved. She feels the best that she has in years. She is able to exercise and ride her bike. She has not required any additional prednisone. The last prednisone was in January 2023. She had a sinus infection in May but recovered with antibiotics only. She didnot have any respiratory symptoms. Her peak flow has been 450. She has some nasal congestion at night and a morning cough. Overall, she is doing very well. The following portions of the patient's history were reviewed and updated as appropriate: allergies, current medications, medical history, surgical history, family history, social history, and problem list. Current Outpatient Medications: Spiriva with HandiHaler 18 mcg inhalation capsule, Inhale 1 capsule (18 mcg total) daily. Using theHandiHaler device., Disp: 90 capsule, Rfl: 11 Advair Diskus 500-50 mcg/act diskus inhaler, Inhale 1 puff 2 (two) times a day., Disp: , Rfl: albuterol (Ventolin HFA) 90 mcg/actuation inhaler, Take 2 puffs by mouth every 6 (six) hours as needed., Disp: , Rfl: bihvpmxdfr-xahyeqcetlzsa-oojt (FIORICET) 50-300-40 mg per capsule, Take 1 capsule by mouth every 6 (six) hours as needed for headaches or migraine., Disp: , Rfl: calcium carbonate-vitamin D3 (Calcium 600 with Vitamin D3) 600 mg-10 mcg (400 unit) tablet,chewable, Chew 1 tablet 2 (two) times a day. 25 mcg, Disp: , Rfl: cholecalciferol (VITAMIN D3) 50 mcg (2,000 Unit) tablet, Take 2,000 Units by mouth daily., Disp: , Rfl: dupilumab (Dupixent Pen) 200 mg/1.14 mL pen injector, Inject 200 mg under the skin every 14 (fourteen) days., Disp: 6.84 mL, Rfl: 3 EPINEPHrine (EpiPen 2-Donovan) 0.3 mg/0.3 mL injection syringe, as needed., Disp: , Rfl: esomeprazole (NexIUM) [address] capsule, Take 40 mg by mouth every morning before breakfast., Disp: , Rfl: estradioL (VIVELLE-DOT) 0.05 mg/24 hr patch, APPLY 1 PATCH TRANSDERMALLY TWICE A WEEK, Disp: , Rfl: famotidine (PEPCID) 20 mg tablet, Take 20 mg by mouth as needed., Disp: , Rfl: fluticasone propion-salmeteroL (Wixela Inhub) 500-50 mcg/dose diskus inhaler, Inhale 1 puff 2 (two)times a day. Rinse mouth with water after use to reduce aftertaste and incidence of candidiasis. Donot swallow., Disp: 180 each, Rfl: 3 fluticasone propionate (FLONASE) 50 mcg/actuation nasal spray, Administer 1 spray into each nostril2 (two) times a day., Disp: , Rfl: ipratropium-albuteroL (DUONEB) 0.5-2.5 mg/3 mL nebulizer solution, Inhale 3 mL by nebulization 4 (four) times a day as needed., Disp: , Rfl: metaxalone (SKELAXIN) 800 mg tablet, Take 400-800 mg by mouth 2 (two) times a day as needed for muscle spasms., Disp: , Rfl: montelukast (SINGULAIR) 10 mg tablet, Take 10 mg by mouth at bedtime., Disp: , Rfl: multivitamin capsule, Take 1 capsule by mouth daily., Disp: , Rfl: multivitamin-eye (PRESERVISION LUTEIN) 226 mg-90 mg-5 mg-0.8 mg capsule, Take 1 capsule by mouth daily., Disp: , Rfl: progesterone (PROMETRIUM) 100 mg capsule, Take 100 mg by mouth daily., Disp: , Rfl: promethazine (PHENERGAN) 25 mg tablet, Take 25 mg by mouth every 6 (six) hours as needed for nausea., Disp: , Rfl: sucralfate (CARAFATE) 1 gram tablet, Take 1 g by mouth daily as needed (WHILE ON HIGH DOSE STEROIDSONLY)., Disp: , Rfl: OBJECTIVE BP 139/84 (BP Location: Right arm, Patient Position: Sitting, Cuff Size: Regular) Pulse 99 Temp36.2 ??C (Temporal) Ht 156.5 cm Wt 71.3 kg SpO2 98% BMI 29.11 kg/m?? PHYSICAL EXAM General : No acute distress. Eyes: No scleral icterus. Lymph: No cervical or supraclavicular adenopathy. ENT: Oropharynx moist without erythema. Heart: Regular rate and rhythm, no murmurs. Lungs: Clear to auscultation bilaterally. Abdomen: +bowel sounds, nontender to palpation. Extremities: No edema ASSESSMENT / PLAN #1 Asthma #2 Rhinitis #3 Alpha-1 antitrypsin deficiency The patient is doing very well on Wixella, Spiriva, and Dupixent. We will continue the current therapy as she will be going into allergy season. If she does well through the spring/summer, we could consider reducing the steroid dose in the Wixella. She should continue increasing her physical activity. I will plan to see her back in 6-12 months. YBOAT PILOT documented in this encounter Plan of Treatment Scheduled Orders Name Type Priority Associated Diagnoses Order Schedule Pulmonary Function Tests PFT Routine Asthma Chronic (HCC) Expected: 06/25/2024, Expires: 09/22/2024 PUL Exhaled Nitric Oxide PFT Routine Asthma Chronic (HCC) Expected: 06/25/2024, Expires: 09/22/2024 DX Chest AP or PA and Lateral 2 Views Imaging RAD - Routine (most inpatients and all outpatients) Asthma Chronic (HCC) Expected: 06/25/2024, Expires: 09/22/2024 CBC with Differential, Blood Lab Routine Asthma Chronic (HCC) Expected: 06/25/2024, Expires: 09/22/2024 Immunoglobulin E (IgE) Lab Routine Asthma Chronic (HCC) Expected: 06/25/2024, Expires: 09/22/2024 Scheduled Referrals Name Type Priority Associated Diagnoses Orde r Schedule Pulmonary Medicine office visit (clinic) Outpatient Referral Routine Expected: 06/25/2024, Expires: 09/22/2024 documented as of this encounter Visit Diagnoses Diagnosis Asthma Chronic (HCC)- Primary documented in this encounter Care Teams Feller Buncher Operator Relationship Specialty Start Date End Date Elsewhere, Pcp PCP - General Internal Medicine 02/28/23 documented as of this encounter
[2023-09-06 07:05] VITALS: BP 148/75; PULSE 86; RESP 18; TEMP 36.6; O2SAT 98
[2023-09-06 07:09] VITALS: BMI 27.3
[2023-09-06] MEDS: SODIUM CHLORIDE 0.9 % (FLUSH) 10 ML SYRINGE IVF (07:38)
[2023-09-06] MEDS: LACTATED RINGERS 1000 ML 1,000 ML 100 ML IV (07:39)
--- NOTE | 2023-09-06 07:41 | SUR.PREOP ---
Patient had migraine and vomiting pre operatively. Received tylenol and zofran given per anesthesia
--- NOTE | 2023-09-06 08:19 | W.PM.H&PU ---
History & Physical Update History & Physical Update H&P Reviewed and patient assessed: The following changes are noted below H&P Updates: Experiencing migraine symptoms, she has noticed that since all of the bleeding issues started migraines have become more frequent. Anesthesia provider has started treatment with IV Acetaminophen, Toradol and antiemetic. She is feeling better now. We re evaluated progesterone therapy and re discussed option for progesterone IUD. Patient is interested to try Mirena IUD and will add this to procedure today. Informed consent was updated and signed again by patient. Will proceed with surgery otherwise as planned. Patient and in agreement with plan.
[2023-09-06] MEDS: BUPIVACAINE 0.5% 30 ML INJECTION (08:36)
--- NOTE | 2023-09-06 08:43 | W.ANESCHARGE ---
Anesthesia Charges Start Date/Time Anesthesia Start Date: 09/06/23 Anesthesia Start Time: 08:13 Stop Date/Time Anesthesia Stop Date: 09/06/23 Anesthesia Stop Time: 09:05
--- NOTE | 2023-09-06 08:54 | SUR.OPER ---
Hysteroscopy fluid deficit 200 ml
[2023-09-06 09:07] VITALS: BP 112/63; PULSE 83; RESP 18; TEMP 36.3; O2SAT 93
--- NOTE | 2023-09-06 09:08 | W.PM.GYNPROC ---
Procedure Note Date of procedure: 09/06/23 Will [facility] bill your pro fee for this procedure?: Yes Pre-op diagnosis: Postmenopausal bleeding Post-op diagnosis: Postmenopausal bleeding Procedure: Hysteroscopy, dilation and curettage, placement of Mirena IUD Anesthesia: MAC Complications: None Surgeon: Richard Harrison MD Estimated blood loss (mL): 5 IV fluids (mL): 900 Urine Output (mL): 200 Pathology: specimen obtained, sent to pathology (endometrial curettings) Condition: stable Disposition: same day Findings: Findings: Normal external genitalia. Speculum exam: atrophy changes of vaginal tissue. Cervix grossly normal, no abnormal discharge. Intrauterine cavity: Increased vascularity throughout cavity, right cornua visualized, left cornua-seemed to have scar tissue covering opening. Intrauterine adhesion, noted towards the right side of the uterus. Uterine sound 6cm. IUD strings were cut long at around 4-5cm. Procedure Description: Patient was taken to the OR were MAC anesthesia was administered without difficulty. She was placed in the dorsal lithotomy position with Austin type stirrups. Patient was then prepared and draped in the normal sterile fashion. A bivalved speculum was inserted in the posterior aspect of the vagina. 0.5% Marcaine was injected at 2 and 11 o'clock a total of about 5mL utilized. A single-tooth tenaculum was used to grasp the anterior lip of the cervix. The cervical os was sequentially dilated to accommodate the 5 mm TrueClear hysteroscope using Hegar dilators. Uterine sound 6cm. A 5 mm 30 degree TrueClear hysteroscope was introduced under direct visualization, and the uterus was distended with normal saline. Findings as above. Soft tissue incisor blade from TrueClear hysteroscope system was introduced under direct visualization and endometrial curettings performed with removal of intrauterine adhesion. Hysteroscope removed under direct visualization. Mirena IUD was placed without difficulty, strings were cut and left about 4-5 cm long. Tenaculum was removed from the cervix and good hemostasis was noted at puncture sites. Patient tolerated the procedure well. Instrument and sponge counts were correct x2. The patient was awakened from MAC anesthesia and taken to the recovery room in a stable condition. The patient will go home after recovering from anesthesia and meeting all the criteria for discharge. She was given instruction regarding follow-up visit in 2 weeks at [facility] and instructions for pain medication. Fluid deficit: 200mL
[2023-09-06 09:24] VITALS: BP 124/70; PULSE 65; RESP 18; O2SAT 95
[2023-09-06 09:42] VITALS: BP 120/70; PULSE 71; RESP 18; O2SAT 96
[2023-09-06 09:59] VITALS: BP 126/77; PULSE 60; RESP 18; O2SAT 97
[2023-09-06 10:09] VITALS: BP 133/76; PULSE 64; RESP 18; O2SAT 95
--- NOTE | 2023-09-06 10:28 | SUR.PHASEII ---
Discharge instructions given to pt over the phone. Pt verbalized understanding.
== END 2023-09-06 10:29 | disposition home or self-care (01) ==
LOC: OR 06:41
PROVIDERS: PCP Internal Medicine; Visit Provider Obstetrics & Gynecology
PROC: 0UDB8ZZ Extraction of Endometrium, Via Natural or Artificial Opening Endoscopic (ICD-10-PCS; CPT 58558; principal; 2023-09-06 08:00)
DX: N95.0 Postmenopausal bleeding (principal); Z30.430 Encounter for insertion of intrauterine contraceptive device; G43.909 Migraine, unspecified, not intractable, without status migrainosus
CPT/HCPCS: 58558; 58300; 00952; 36415; 85018; 88305; J0665; J1100; J1885; J2250; J2405; J2704; J3010; J7120; J7298

== ENCOUNTER 2023-09-23 09:20 | Outpatient (CLI) | payer OTHER, SELFPAY ==
--- OUTSIDE RECORDS SUMMARY | 2023-09-23 09:22 | XMS_ITS | Clinical Summary ---
Author Organization [facility] Address [address] [place] [address] Care Team Providers Care Pediatric Geneticist Name Role Phone Elsewhere, Pcp Primary Care Provider Unavailabl e Source Comments Patient records contain information from all sites at [facility]. For routine questions regarding patient records, call [phone] during business hours, M-F 8:00 AM - 5:00 PM Central Time. Record requests for emergency care only can be directed to [phone] at any time.[facility] Allergies Active Allergy Reactions Criticality Noted Date [...] HandiHaler device. 90 capsule 11 06/17/2023 Active Family History Medical History Relation Name Comments [...] often do you attend chur ch or sabianist services? More than 4 times per year 08/08/2022 Do you belong to any clubs o r organizations such as orthodoxy groups, unions, fraternal or athletic groups, or [...] care, and heating? Not very hard 08/08/2022 [facility] of Occupat ional Health - Occupational Stress [...] place to sleep or slept in a retirement (including now)? No 08/08/2022 Nutrition Answer Date [...] Master's degree (e.g., MA, MS, Jaleel, MEd, LAND SURVEYOR, HENRY) 08/08/2022 Sex and Gender Information Value Date Recorded Sex Assigned at Female 08/08/2022 12:01 PM CDT Gender Identity Female 08/08/2022 12:01 PM CDT Sexual Orientation Straight 08/08/2022 12 :01 PM CDT Last Filed Vital Signs Vital Sign Reading Time Taken Comments Blood Pressure 139/84 06/17/2023 2:22 PM TUMBLER MACHINE OPERATOR Pulse 99 06/17/2023 2:22 PM TUMBLER MACHINE OPERATOR Temperature 36.2 ??C (97.2 ??F) 06/17/2023 2:22 PM CS T Respiratory Rate - - Oxygen Saturation 98% 06/17/2023 2:22 PM TUMBLER MACHINE OPERATOR Inhaled Oxygen Concentration - - Weight 71.3 kg (157 lb 3 oz) 06/17/2023 2:22 PM TUMBLER MACHINE OPERATOR Height 156.5 cm (5' 1.61) 06/17/2023 2:22 PM CS T Body Mass Index 29.11 06/17/2023 2:22 PM TUMBLER MACHINE OPERATOR Plan of Treatment Health Maintenance Due Date [...] Procedure Name Priority Date/Time Associated Diagnosis Comments BASIC METABOLIC PANEL, S/P Routine 11/08/2022 12:57 PM CDT Asthma Moderate Persistent (HCC) OUTSIDE MG MAMMOGRAM Routine 09/08/2021 2:05 PM CDT from Last 3 Months or Most Recently Relevant to Health Maintenance Results * (ABNORMAL) Basic Metabolic Panel (11/08/2022 12:57 [...] CDT Martha Bryant M.D. LAB BLOOD ADD-ON [facility] [address] [place] [address], [facility] [address] [place] [address] * MAMMO SCREEN, BILAT, W/CAD-Outside Mammogram (09/08/2021 [...] Provider Not In System IMG BI PROCEDURES IIMS NA from Last 3 Months or Most Recently Relevant to Health Maintenance Care Teams Pediatric Geneticist Relationship Specialty Start Date End Date Elsewhere, Pcp PCP - General Internal Medicine 02/28/23
--- OUTSIDE RECORDS SUMMARY | 2023-09-23 09:23 | XMS_ITS | Encounter Summary ---
Author Organization [facility] Address [address] [place] [address] Care Team Providers Care Insurance Agents Supervisor Name Role Phone Elsewhere, Pcp Primary Care Provider Unavailabl e Reason for Visit * Reason Onset Date Comments Rx Prior Authorization 06/02/2023 Dupixent Encounter Details Date Type Department Care Team (Latest Contact Info) Description 06/02/2023 Clinical Communication Division of Pulmonary Medicine in [place], [place] [address] [place] [address] Martha Moncada M.D. [address] [place] [address] Rx Prior Authorization (Dupixent ) Social History [...] often do you attend chur ch or religion services? More than 4 times per year 08/08/2022 Do you belong to any clubs o r organizations such as bahai groups, unions, fraternal or athletic groups, or [...] care, and heating? Not very hard 08/08/2022 [facility] of Occupat ional Health - [...] place to sleep or slept in a skilled nursing (including now)? No 08/08/2022 Nutrition Answer Date [...] Master's degree (e.g., MA, MS, Jaleel, MEd, CHILLER OPERATOR, HENRY) 08/08/2022 Sex and Gender Information Value Date Recorded Sex Assigned at Female 08/08/2022 12:01 PM CDT Gender Identity Female 08/08/2022 12:01 PM CDT Sexual Orientation Straight 08/08/2022 12 :01 PM CDT documented as of this encounter Plan of Treatment Not on file documented as of this encounter Visit Diagnoses Not on filedocumented in this encounter Care Teams Insurance Agents Supervisor Relationship Specialty Start Date End Date Elsewhere, Pcp PCP - General Internal Medicine 02/28/23 documented as of this encounter
--- OUTSIDE RECORDS SUMMARY | 2023-09-23 09:23 | XMS_ITS | Encounter Summary ---
Author Organization [facility] Address [address] [place] [address] Care Team Providers Care Manufacturing Director Name Role Phone Elsewhere, Pcp Primary Care Provider Unavailabl e Reason for Visit * Reason Onset Date Comments Medication PA 06/21/2023 Encounter Details Date Type Department Care Team (Late st Contact Info) Description 06/21/2023 Clinical Communication Division of Pulmonary Medicine in [place], [place] [address] [place] [address] Martha Moncada M.D. [address] [place] [address] Medication PA Social History Tobacco Use Types [...] often do you attend chur ch or episcopalian services? More than 4 times per year [...] care, and heating? Not very hard 08/08/2022 [facility] of Occupat ional Health - [...] place to sleep or slept in a snf (including now)? No 08/08/2022 Nutrition Answer Date [...] Master's degree (e.g., MA, MS, Jaleel, MEd, RAIL SWITCH OPERATOR, HENRY) 08/08/2022 Sex and Gender Information [...] of medication. Pleasemark as a high priority. BUILDER documented in this encounter Plan of Treatment Not on file documented as of this encounter Visit Diagnoses Not on filedocumented in this encounter Care Teams Manufacturing Director Relationship Specialty Start Date End Date Elsewhere, Pcp PCP - General Internal Medicine 02/28/23 documented as of this encounter
--- OUTSIDE RECORDS SUMMARY | 2023-09-23 09:23 | XMS_ITS | Encounter Summary ---
Author Organization [facility] Address [address] [place] [address] Care Team Providers Care Chief Contract Officer Name Role Phone Elsewhere, Pcp Primary Care Provider Unavailabl e Encounter Details Date Type Department Care Team (Late st Contact Info) Description 06/21/2023 Orders Only Division of Pulmonary Medicine in [place], [place] [address] [place] [address] Martha Moncada M.D. [address] [place] [address] Social History Tobacco Use Types Packs/Day Years [...] often do you attend chur ch or rastafari services? More than 4 times per year [...] care, and heating? Not very hard 08/08/2022 [facility] [place] of Occupat ional Health - Occupational Stress [...] place to sleep or slept in a fci (including now)? No 08/08/2022 Nutrition Answer Date [...] Master's degree (e.g., MA, MS, Jaleel, MEd, TIMBER GIRDLER, HENRY) 08/08/2022 Sex and Gender Information Value Date Recorded Sex Assigned at Female 08/08/2022 12:01 PM CDT Gender Identity Female 08/08/2022 12:01 PM CDT Sexual Orientation Straight 08/08/2022 12 :01 PM CDT documented as of this encounter Plan of Treatment Not on file documented as of this encounter Visit Diagnoses Not on filedocumented in this encounter Care Teams Chief Contract Officer Relationship Specialty Start Date End Date Elsewhere, Pcp PCP - General Internal Medicine 02/28/23 documented as of this encounter
--- OUTSIDE RECORDS SUMMARY | 2023-09-23 09:23 | XMS_ITS | Encounter Summary ---
Author Organization [facility] Address [address] [place] [address] Care Team Providers Care Currency Exchange Specialist Name Role Phone Elsewhere, Pcp Primary Care Provider Unavailabl e Reason for Referral * Outpatient (Routine) - Authorized Specialty Diagnoses / Procedures Referred By Ciro robles Referred To Contact Pulmonary Medicine Martha Moncada M.D. [address] [place] [address] [facility] Referral ID Status Reason Start Date Expiration Date V isits Requested Visits Authorized [id number] Authorized 06/25/2023 12/24/2024 1 1 PAY SPECIALIST * Outpatient (Routine) - Authorized Specialty Diagnoses / Procedures Referred By Ciro robles Referred To Contact Diagnoses Asthma Chronic (HCC) Procedures DX Chest AP or PA and Lateral 2 Views Martha Moncada M.D. [address] [place] [address] [facility] Referral ID Status Reason Start Date Expiration Date V isits Requested Visits Authorized [id number] Authorized 06/25/2023 06/24/2024 1 1 PAY SPECIALIST * Medication Prior Authorization - Closed Specialty Diagnoses / Procedures Referred By Ciro robles Referred To Contact Martha Moncada M.D. [address] [place] [address] Referral ID Status Reason Start Date Expiration Date Visits Re quested Visits Authorized [id number] Closed 1 1 PAY SPECIALIST Reason for Visit * Outpatient (Routine) - Closed Specialty Diagnoses / Procedures Referred By Ciro robles Referred To Contact Pulmonary Medicine Martha Moncada M.D. [address] [place] [address] [facility] Referral ID Status Reason Start Date Expiration Date Visits Re quested Visits Authorized [id number] Closed 12/01/2022 11/30/2025 1 1 Encounter Details Date Type Department Care Team (Late st Contact Info) Description 06/17/2023 2:30 PM SELF PAY SPECIALIST Office Visit Division of Pulmonary Medicine in [place], [place] [address] [place] [phone] Martha Moncada M.D. [address] [place] [phone] Asthma Chronic (HCC) (Primary Dx) Social History [...] often do you attend chur ch or shinto services? More than 4 times per year 08/08/2022 Do you belong to any clubs o r organizations such as temple groups, unions, fraternal or athletic groups, or [...] care, and heating? Not very hard 08/08/[address] [facility] of Occupat ional Health - Occupational Stress [...] Master's degree (e.g., MA, MS, Jaleel, MEd, VARIETY LATHE OPERATOR, HENRY) 08/08/2022 Sex and Gender Information Value Date Recorded Sex Assigned at Female 08/08/2022 12:01 PM CDT Gender Identity Female 08/08/2022 12:01 PM CDT Sexual Orientation Straight 08/08/2022 12 :01 PM CDT documented as of this encounter Last Filed Vital Signs Vital Sign Reading Time Taken Comments Blood Pressure 139/84 06/17/2023 2:22 PM SELF PAY SPECIALIST Pulse 99 06/17/2023 2:22 PM SELF PAY SPECIALIST Temperature 36.2 ??C (97.2 ??F) 06/17/2023 2:22 PM CS T Respiratory Rate - - Oxygen Saturation 98% 06/17/2023 2:22 PM SELF PAY SPECIALIST Inhaled Oxygen Concentration - - Weight 71.3 kg (157 lb 3 oz) 06/17/2023 2:22 PM SELF PAY SPECIALIST Height 156.5 cm (5' 1.61) 06/17/2023 2:22 PM CS T Body Mass Index 29.11 06/17/2023 2:22 PM SELF PAY SPECIALIST documented in this encounter Progress Notes * [...] (six) hours as needed., Disp: , Rfl: lvjqchfhgx-mvdlubusxeiry-rbue (FIORICET) 50-300-40 mg per capsule, Take 1 [...] to see her back in 6-12 months. PAY SPECIALIST documented in this encounter Plan of Treatment [...] Primary documented in this encounter Care Teams Currency Exchange Specialist Relationship Specialty Start Date End Date Elsewhere, Pcp PCP - General Internal Medicine 02/28/23 documented as of this encounter
--- OUTSIDE RECORDS SUMMARY | 2023-09-23 09:23 | XMS_ITS ---
Author Organization [facility] Address [address] [place] [address] Care Team Providers Care Biological Sciences Instructor Name Role Phone Unavailable Unavailable Unavailable Surgery Details Not on file Complications Check Surgery Details section. Procedure Estimated Blood Loss Check Surgery Details section. Procedure Findings Check Surgery Details section. Procedure Specimens Taken Check Surgery Details section.
--- OUTSIDE RECORDS SUMMARY | 2023-09-23 09:23 | XMS_ITS | Encounter Summary ---
Author Organization [facility] Address [address] [place] [address] Care Team Providers Care Wire Frame Maker Name Role Phone Elsewhere, Pcp Primary Care Provider Unavailabl e Encounter Details Date Type Department Care Team (Latest Contact Info) Description 06/16/2023 2:00 PM HOT PUNCH PRESS OPERATOR Clinical Communication Virtual Review in [place], [place] [address] [place] [address] Social History Tobacco Use Types Packs/Day Years [...] often do you attend chur ch or jehovah's witness services? More than 4 times per year 08/08/2022 Do you belong to any clubs o r organizations such as shinto groups, unions, fraternal or athletic groups, or [...] care, and heating? Not very hard 08/08/2022 [facility] of Occupat ional Health - [...] place to sleep or slept in a mcc (including now)? No 08/08/2022 Nutrition Answer Date [...] Master's degree (e.g., MA, MS, Jaleel, MEd, TICKET AGENT, HENRY) 08/08/2022 Sex and Gender Information Value Date Recorded Sex Assigned at Female 08/08/2022 12:01 PM CDT Gender Identity Female 08/08/2022 12:01 PM CDT Sexual Orientation Straight 08/08/2022 12 :01 PM CDT documented as of this encounter Plan of Treatment Not on file documented as of this encounter Visit Diagnoses Not on filedocumented in this encounter Care Teams Wire Frame Maker Relationship Specialty Start Date End Date Elsewhere, Pcp PCP - General Internal Medicine 02/28/23 documented as of this encounter
--- OUTSIDE RECORDS SUMMARY | 2023-09-23 09:23 | XMS_ITS | Referral Summary ---
Author Organization [facility] Address [address] [place] [address] Care Team Providers Care Heating Unit Installer Name Role Phone Elsewhere, Pcp Primary Care Provider Unavailabl e Source Comments Patient records contain information from all sites at [facility]. For routine questions regarding patient records, call [phone] during business hours, M-F 8:00 AM - 5:00 PM Central Time. Record requests for emergency care only can be directed to [phone] at any time.[facility] Allergies Active Allergy Reactions Criticality Noted Date [...] week 08/08/2022 How often do you attend [facility] or taoism services? More than 4 times per year 08/08/2022 Do you belong to any clubs o r organizations such as amish groups, unions, fraternal or athletic groups, or [...] care, and heating? Not very hard 08/08/2022 [facility] - Occupational Stress Questionnaire Answer Date Recorded [...] Master's degree (e.g., MA, MS, Jaleel, MEd, INSTALLER INTERIOR ASSEMBLIES, HENRY) 08/08/2022 Sex and Gender Information Value Date Recorded Sex Assigned at Female 08/08/2022 12:01 PM CDT Gender Identity Female 08/08/2022 12:01 PM CDT Sexual Orientation Straight 08/08/2022 12 :01 PM CDT Last Filed Vital Signs Vital Sign Reading Time Taken Comments Blood Pressure 139/84 06/17/2023 2:22 PM DIAMOND MOUNTER Pulse 99 06/17/2023 2:22 PM DIAMOND MOUNTER Temperature 36.2 ??C (97.2 ??F) 06/17/2023 2:22 PM CS T Respiratory Rate - - Oxygen Saturation 98% 06/17/2023 2:22 PM DIAMOND MOUNTER Inhaled Oxygen Concentration - - Weight 71.3 kg (157 lb 3 oz) 06/17/2023 2:22 PM DIAMOND MOUNTER Height 156.5 cm (5' 1.61) 06/17/2023 2:22 PM CS T Body Mass Index 29.11 06/17/2023 2:22 PM DIAMOND MOUNTER Plan of Treatment Not on file Procedures [...] CDT Martha Bryant M.D. LAB BLOOD ADD-ON [facility] [address] [place] [address], [facility] [address] [place] [address] * MAMMO SCREEN, BILAT, W/CAD-Outside Mammogram (09/08/2021 [...] Recently Relevant to Health Maintenance Care Teams Heating Unit Installer Relationship Specialty Start Date End Date Elsewhere, Pcp PCP - General Internal Medicine 02/28/23
== END 2023-09-23 09:21 | disposition home or self-care (01) ==
PROVIDERS: PCP Internal Medicine; Visit Provider Obstetrics & Gynecology
DX: R35.0 Frequency of micturition (principal)
CPT/HCPCS: 80053; 87086

== ENCOUNTER 2023-10-07 14:25 | Outpatient (CLI) | payer OTHER, SELFPAY ==
--- OUTSIDE RECORDS SUMMARY | 2023-10-07 14:29 | XMS_ITS | Encounter Summary ---
Author Organization [facility] Address [address] [place] [address] Care Team Providers Care Panama Hat Blocker Name Role Phone Elsewhere, Pcp Primary Care Provider Unavailabl e Reason for Visit * Reason Onset Date Comments Medication PA 06/21/2023 Encounter Details Date Type Department Care Team (Late st Contact Info) Description 06/21/2023 Clinical Communication Division of Pulmonary Medicine in [place], [place] [address] [place] [address] Martha Moncada M.D. [address] [place] [address] Medication PA Social History Tobacco Use Types [...] often do you attend chur ch or gnosticist services? More than 4 times per year [...] care, and heating? Not very hard 08/08/2022 [facility] of Occupat ional Health - Occupational [...] place to sleep or slept in a jail (including now)? No 08/08/2022 Nutrition Answer Date [...] Master's degree (e.g., MA, MS, Jaleel, MEd, MAINTENANCE FOREMAN, HENRY) 08/08/2022 Sex and Gender Information Value [...] of medication. Pleasemark as a high priority. ERCIAL HOUSEKEEPER documented in this encounter Plan of Treatment Not on file documented as of this encounter Visit Diagnoses Not on filedocumented in this encounter Care Teams Panama Hat Blocker Relationship Specialty Start Date End Date Elsewhere, Pcp PCP - General Internal Medicine 02/28/23 documented as of this encounter
--- OUTSIDE RECORDS SUMMARY | 2023-10-07 14:29 | XMS_ITS | Clinical Summary ---
Author Organization [facility] Address [address] [place] [address] Care Team Providers Care Cut Off Tender Glass Name Role Phone Elsewhere, Pcp Primary Care Provider Unavailabl e Source Comments Patient records contain information from all sites at [facility]. For routine questions regarding patient records, call [phone] during business hours, M-F 8:00 AM - 5:00 PM Central Time. Record requests for emergency care only can be directed to [phone] at any time.[facility] Allergies Active Allergy Reactions Criticality Noted Date [...] often do you attend chur ch or faith services? More than 4 times per year 08/08/2022 Do you belong to any clubs o r organizations such as voodoo groups, unions, fraternal or athletic groups, or [...] care, and heating? Not very hard 08/08/2022 [facility] [place] of Occupat ional Health - Occupational Stress [...] Master's degree (e.g., MA, MS, Jaleel, MEd, MOLECULAR GENETIC PATHOLOGIST, HENRY) 08/08/2022 Sex and Gender Information Value Date Recorded Sex Assigned at Female 08/08/2022 12:01 PM CDT Gender Identity Female 08/08/2022 12:01 PM CDT Sexual Orientation Straight 08/08/2022 12 :01 PM CDT Last Filed Vital Signs Vital Sign Reading Time Taken Comments Blood Pressure 139/84 06/17/2023 2:22 PM SURVEYING TEACHER Pulse 99 06/17/2023 2:22 PM SURVEYING TEACHER Temperature 36.2 ??C (97.2 ??F) 06/17/2023 2:22 PM CS T Respiratory Rate - - Oxygen Saturation 98% 06/17/2023 2:22 PM SURVEYING TEACHER Inhaled Oxygen Concentration - - Weight 71.3 kg (157 lb 3 oz) 06/17/2023 2:22 PM SURVEYING TEACHER Height 156.5 cm (5' 1.61) 06/17/2023 2:22 PM CS T Body Mass Index 29.11 06/17/2023 2:22 PM SURVEYING TEACHER Plan of Treatment Health Maintenance Due Date [...] CDT Martha Bryant M.D. LAB BLOOD ADD-ON [facility] [address] [place] [address], [facility] [address] [place] [address] * MAMMO SCREEN, BILAT, W/CAD-Outside Mammogram (09/08/2021 [...] Recently Relevant to Health Maintenance Care Teams Cut Off Tender Glass Relationship Specialty Start Date End Date Elsewhere, Pcp PCP - General Internal Medicine 02/28/23
--- OUTSIDE RECORDS SUMMARY | 2023-10-07 14:29 | XMS_ITS | Encounter Summary ---
Author Organization [facility] Address [address] [place] [address] Care Team Providers Care Senior C Web Developer Name Role Phone Elsewhere, Pcp Primary Care Provider Unavailabl e Reason for Visit * Reason Onset Date Comments Rx Prior Authorization 06/02/2023 Dupixent Encounter Details Date Type Department Care Team (Latest Contact Info) Description 06/02/2023 Clinical Communication Division of Pulmonary Medicine in [place], [place] [address] [place] [address] Martha Moncada M.D. [address] [place] [address] Rx Prior Authorization (Dupixent ) Social History [...] often do you attend chur ch or quaker services? More than 4 times per year 08/08/2022 Do you belong to any clubs o r organizations such as yarsani groups, unions, fraternal or athletic groups, or [...] care, and heating? Not very hard 08/08/2022 [facility] - [...] Master's degree (e.g., MA, MS, Jaleel, MEd, REGISTERED MAIL CLERK, HENRY) 08/08/2022 Sex and Gender Information Value Date Recorded Sex Assigned at Female 08/08/2022 12:01 PM CDT Gender Identity Female 08/08/2022 12:01 PM CDT Sexual Orientation Straight 08/08/2022 12 :01 PM CDT documented as of this encounter Plan of Treatment Not on file documented as of this encounter Visit Diagnoses Not on filedocumented in this encounter Care Teams Senior C Web Developer Relationship Specialty Start Date End Date Elsewhere, Pcp PCP - General Internal Medicine 02/28/23 documented as of this encounter
--- OUTSIDE RECORDS SUMMARY | 2023-10-07 14:29 | XMS_ITS | Referral Summary ---
Author Organization [facility] Address [address] [place] [address] Care Team Providers Care Bottom Saw Operator Name Role Phone Elsewhere, Pcp Primary Care Provider Unavailabl e Source Comments Patient records contain information from all sites at [facility]. For routine questions regarding patient records, call [phone] during business hours, M-F 8:00 AM - 5:00 PM Central Time. Record requests for emergency care only can be directed to [phone] at any time.[facility] Allergies Active Allergy Reactions Criticality Noted [...] week 08/08/2022 How often do you attend [facility] or jainism services? More than 4 times per year 08/08/2022 Do you belong to any clubs o r organizations such as sabianism groups, unions, fraternal or athletic groups, or [...] care, and heating? Not very hard 08/08/2022 [facility] - Occupational Stress Questionnaire Answer Date [...] Master's degree (e.g., MA, MS, Jaleel, MEd, INDUSTRIAL CLEANING TECHNICIAN, HENRY) 08/08/2022 Sex and Gender Information Value Date Recorded Sex Assigned at Female 08/08/2022 12:01 PM CDT Gender Identity Female 08/08/2022 12:01 PM CDT Sexual Orientation Straight 08/08/2022 12 :01 PM CDT Last Filed Vital Signs Vital Sign Reading Time Taken Comments Blood Pressure 139/84 06/17/2023 2:22 PM GENERAL MANAGER FOOD Pulse 99 06/17/2023 2:22 PM GENERAL MANAGER FOOD Temperature 36.2 ??C (97.2 ??F) 06/17/2023 2:22 PM CS T Respiratory Rate - - Oxygen Saturation 98% 06/17/2023 2:22 PM GENERAL MANAGER FOOD Inhaled Oxygen Concentration - - Weight 71.3 kg (157 lb 3 oz) 06/17/2023 2:22 PM GENERAL MANAGER FOOD Height 156.5 cm (5' 1.61) 06/17/2023 2:22 PM CS T Body Mass Index 29.11 06/17/2023 2:22 PM GENERAL MANAGER FOOD Plan of Treatment Not on file Procedures [...] CDT Martha Bryant M.D. LAB BLOOD ADD-ON [facility] [address] [place] [address], [facility] [address] [place] [address] * MAMMO SCREEN, BILAT, W/CAD-Outside Mammogram (09/08/2021 [...] Recently Relevant to Health Maintenance Care Teams Bottom Saw Operator Relationship Specialty Start Date End Date Elsewhere, Pcp PCP - General Internal Medicine 02/28/23
--- OUTSIDE RECORDS SUMMARY | 2023-10-07 14:29 | XMS_ITS ---
Author Organization [facility] Address [address] [place] [address] Care Team Providers Care Preboarder Name Role Phone Unavailable Unavailable Unavailable Surgery Details Not on file Complications Check Surgery Details section. Procedure Estimated Blood Loss Check Surgery Details section. Procedure Findings Check Surgery Details section. Procedure Specimens Taken Check Surgery Details section.
--- NOTE | 2023-10-07 14:40 | CRLHL7_ITS ---
For Patients: As a result of the Century Cures Act, medical imaging exams and procedure reports are released immediately into your electronic medical record. You may view this report before your referring provider. If you have questions, please contact your health care provider. BILATERAL SCREENING MAMMOGRAM WITH COMPUTER-AIDED DETECTION AND TOMOSYNTHESIS TECHNIQUE: CC and MLO views were obtained. These mammographic images have been obtained using full-field digital technique. These mammographic images were interpreted with the benefit of computer-aided detection. Breast Tomosynthesis was used in this interpretation. COMPARISON FILM: 10/05/22, 09/08/21, 07/15/20. FINDINGS: There are scattered areas of fibroglandular density. IMPRESSION: There is no radiographic evidence for malignancy. ASSESSMENT: BI-RADS Category 1: Negative RECOMMENDATION: Routine screening mammogram in 1 year. A lay language report of this examination will be provided to the patient. Sam Weir M.D. Diagnostic Radiologist [email or web address] SP/Dictated by: Sam Weir MD @ 10/10/2023 8:56:00 AM (Electronically Signed)
== END 2023-10-07 14:26 | disposition home or self-care (01) ==
LOC: MAMMO 14:26
PROVIDERS: PCP Internal Medicine; Visit Provider Obstetrics & Gynecology
DX: Z12.31 Encounter for screening mammogram for malignant neoplasm of breast (principal)
CPT/HCPCS: 77063; 77067

== ENCOUNTER 2023-12-22 08:46 | Outpatient (CLI) | payer OTHER, SELFPAY ==
--- OUTSIDE RECORDS SUMMARY | 2023-12-22 08:50 | XMS_ITS | Clinical Summary ---
Author Organization [facility] Address [address] [place] [address] Care Team Providers Care Spindle Frame Carver Name Role Phone Elsewhere, Pcp Primary Care Provider Unavailabl e Source Comments Patient records contain information from all sites at [facility]. For routine questions regarding patient records, call [phone] during business hours, M-F 8:00 AM - 5:00 PM Central Time. Record requests for emergency care only can be directed to [phone] at any time.[facility] Allergies Active Allergy Reactions Criticality Noted Date [...] Sister Vianney Lane Rheum arthritis Mother's Sister Vainney Lane Skin cancer Mother's Sister Vianney Lane [...] often do you attend chur ch or scientologist services? More than 4 times per year 08/08/2022 Do you belong to any clubs o r organizations such as druze groups, unions, fraternal or athletic groups, or [...] care, and heating? Not very hard 08/08/2022 [facility] Occupat ional Health - Occupational Stress [...] Master's degree (e.g., MA, MS, Jaleel, MEd, OFFICE SUPPORT, HENRY) 08/08/2022 Sex and Gender Information Value Date Recorded Sex Assigned at Female 08/08/2022 12:01 PM CDT Gender Identity Female 08/08/2022 12:01 PM CDT Sexual Orientation Straight 08/08/2022 12 :01 PM CDT Last Filed Vital Signs Vital Sign Reading Time Taken Comments Blood Pressure 139/84 06/17/2023 2:22 PM SENIOR FIRMWARE ENGINEER Pulse 99 06/17/2023 2:22 PM SENIOR FIRMWARE ENGINEER Temperature 36.2 ??C (97.2 ??F) 06/17/2023 2:22 PM CS T Respiratory Rate - - Oxygen Saturation 98% 06/17/2023 2:22 PM SENIOR FIRMWARE ENGINEER Inhaled Oxygen Concentration - - Weight 71.3 kg (157 lb 3 oz) 06/17/2023 2:22 PM SENIOR FIRMWARE ENGINEER Height 156.5 cm (5' 1.61) 06/17/2023 2:22 PM CS T Body Mass Index 29.11 06/17/2023 2:22 PM SENIOR FIRMWARE ENGINEER Plan of Treatment Health Maintenance Due Date Last Done Comments CT Colonography 1962 Cervical Cancer Screening 1962 Cologuard 1962 Colonoscopy 1962 Colorectal Cancer Screening 1962 FIT 1962 HIV Screening 1962 Hepatitis C Screening 1962 Lipid (Cholesterol) Screening 1962 Pneumococcal vaccine (0-64 y ears) (2 of 2 - PCV) 10/10/2011 10/09/2010 Mammogram 09/08/2022 09/08/2021, 06/30, 10/23/2018, Additional history exists COVID-19 Vaccine ( - 2022-2 4 season) 2023 01/25/2023, 01/27/2022, 08/10/2021, Additional history exists Depression Screening (Annual PHQ-2) 05/02/2023 Influenza Vaccine (#1) 2024 , 03/05/2022, 01/27/2022, Additional history exists Fasting Glucose for Diabetes Screening 11/08/2025 11/08/2022, 08/09/2022 DTaP,Tdap,and Td Vaccines (3 - Td or Tdap) 09/02/2028 09/02/2018, 11/28/2007, 06/30/2002 Zoster Vaccines Completed 04/16/2019, 08/26/2017 Procedures Procedure Name Priority Date/Time Associated Diagnosis [...] LAB BLOOD ADD-ON [facility] [address] [place] [address], [facility] [address] [place] [address] * MAMMO SCREEN, BILAT, W/CAD-Outside Mammogram (09/08/2021 [...] Recently Relevant to Health Maintenance Care Teams Spindle Frame Carver Relationship Specialty Start Date End Date Elsewhere, Pcp PCP - General Internal Medicine 02/28/23
--- OUTSIDE RECORDS SUMMARY | 2023-12-22 08:50 | XMS_ITS ---
Author Organization [facility] Address [address] [place] [address] Care Team Providers Care Aboriginal Ceremonial Celebrant Name Role Phone Unavailable Unavailable Unavailable Surgery Details Not on file Complications Check Surgery Details section. Procedure Estimated Blood Loss Check Surgery Details section. Procedure Findings Check Surgery Details section. Procedure Specimens Taken Check Surgery Details section.
--- OUTSIDE RECORDS SUMMARY | 2023-12-22 08:50 | XMS_ITS | Referral Summary ---
Author Organization [facility] Address [address] [place] [address] Care Team Providers Care Prevention Specialist Name Role Phone Elsewhere, Pcp Primary Care Provider Unavailabl e Source Comments Patient records contain information from all sites at [facility]. For routine questions regarding patient records, call [phone] during business hours, M-F 8:00 AM - 5:00 PM Central Time. Record requests for emergency care only can be directed to [phone] at any time.[facility] Allergies Active Allergy Reactions Criticality Noted [...] week 08/08/2022 How often do you attend [facility] or zoroastrianism services? More than 4 times per year [...] care, and heating? Not very hard 08/08/2022 [facility] - Occupational Stress Questionnaire Answer Date Recorded [...] Master's degree (e.g., MA, MS, Jaleel, MEd, TEA PLANTATION WORKER, HENRY) 08/08/2022 Sex and Gender Information Value Date Recorded Sex Assigned at Female 08/08/2022 12:01 PM CDT Gender Identity Female 08/08/2022 12:01 PM CDT Sexual Orientation Straight 08/08/2022 12 :01 PM CDT Last Filed Vital Signs Vital Sign Reading Time Taken Comments Blood Pressure 139/84 06/17/2023 2:22 PM WRAPPER SIZER Pulse 99 06/17/2023 2:22 PM WRAPPER SIZER Temperature 36.2 ??C (97.2 ??F) 06/17/2023 2:22 PM CS T Respiratory Rate - - Oxygen Saturation 98% 06/17/2023 2:22 PM WRAPPER SIZER Inhaled Oxygen Concentration - - Weight 71.3 kg (157 lb 3 oz) 06/17/2023 2:22 PM WRAPPER SIZER Height 156.5 cm (5' 1.61) 06/17/2023 2:22 PM CS T Body Mass Index 29.11 06/17/2023 2:22 PM WRAPPER SIZER Plan of Treatment Not on file Procedures [...] CDT Martha Bryant M.D. LAB BLOOD ADD-ON [facility] [address] [place] [address], [facility] [address] [place] [address] * MAMMO SCREEN, BILAT, W/CAD-Outside Mammogram (09/08/2021 [...] Recently Relevant to Health Maintenance Care Teams Prevention Specialist Relationship Specialty Start Date End Date Elsewhere, Pcp PCP - General Internal Medicine 02/28/23
== END 2023-12-22 08:47 | disposition home or self-care (01) ==
LOC: NFLDREF 08:47
PROVIDERS: PCP Internal Medicine; Visit Provider Internal Medicine
DX: I10 Essential (primary) hypertension (principal)
CPT/HCPCS: 80061

== ENCOUNTER 2025-01-15 14:37 | Outpatient (CLI) | payer OTHER, SELFPAY ==
--- NOTE | 2025-01-15 15:00 | CRLHL7_ITS ---
For Patients: As a result of the Century Cures Act, medical imaging exams and procedure reports are released immediately into your electronic medical record. You may view this report before your referring provider. If you have questions, please contact your health care provider. INDICATION: BILATERAL SCREENING MAMMOGRAM, ASYMPTOMATIC 64 Y/O FEMALE COMPARISON: 10/07/2023, 10/05/2022, 09/08/2021 TECHNIQUE: Digital mammogram in CC and MLO projections including computer-aided detection (CAD) and tomosynthesis. BREAST COMPOSITION: The breasts are heterogeneously dense, which may obscure small masses. FINDINGS: No suspicious findings. ASSESSMENT: BI-RADS 1 Negative RECOMMENDATION: Annual screening mammogram. A lay language report of this examination will be provided to the patient. Dictated by: Sam Weir MD @ 01/16/2025 09:40:26 (Electronically Signed)
== END 2025-01-15 14:38 | disposition home or self-care (01) ==
PROVIDERS: PCP Internal Medicine; Visit Provider Obstetrics & Gynecology
DX: Z12.31 Encounter for screening mammogram for malignant neoplasm of breast (principal); R92.333 Mammographic heterogeneous density, bilateral breasts
CPT/HCPCS: 77063; 77067